=== PATIENT | male | born 1955 | race Hispanic/Latino ===

== ENCOUNTER 2021-04-09 08:16 | Day surgery (SDC) | payer OTHER ==
[~2021-04-09] VITALS: Ht 167.6 cm; Wt 76.2 kg
[2021-04-09] VITALS (7 sets, daily range): BP systolic 96–122; BP diastolic 59–76
[~2021-04-09 08:16] MED LIST: 0.9%NACL 1000ML 1,000 ML IV ONE
[2021-04-09] MEDS ORDERED: VITA1TAB22 PO (09:25)
[2021-04-09] MEDS ORDERED: METF-444 PO (09:25)
[2021-04-09] MEDS ORDERED: ROSU20TA31 PO (09:25)
[2021-04-09] MEDS ORDERED: CETI-89 PO (09:25)
[2021-04-09] MEDS ORDERED: CELE-84 PO (09:25)
[2021-04-09] MEDS ORDERED: ONDA-104 PO (09:25)
[2021-04-09] MEDS ORDERED: ESOM40CA54 PO (09:25)
[2021-04-09] MEDS ORDERED: PROPOFOL 10 MG/ML 20ML VIAL IV ONE ×3 (11:02→11:30)
[2021-04-09] MEDS ORDERED: LEVOFLOXACIN 500 MG/D5W 100 ML 100 ML ONE (11:30)
== END 2021-04-09 12:35 | disposition home or self-care (01) ==
LOC: ENDO 08:16 → DAH 08:16 → ENDO 12:35
PROVIDERS: ATTEND Internal Medicine Gastroenterology
DX: C25.0 Malignant neoplasm of head of pancreas (principal); K86.89 Other specified diseases of pancreas; K29.70 Gastritis, unspecified, without bleeding; K31.89 Other diseases of stomach and duodenum; K44.9 Diaphragmatic hernia without obstruction or gangrene; K59.00 Constipation, unspecified; Z90.49 Acquired absence of other specified parts of digestive tract; Z98.890 Other specified postprocedural states; Z86.010 Personal history of colon polyps; Z79.899 Other long term (current) drug therapy; Z79.84 Long term (current) use of oral hypoglycemic drugs; Z85.048 Personal history of other malignant neoplasm of rectum, rectosigmoid junction, and anus
CPT/HCPCS: 36415 ×2; 43238; 82150; 82378; 82948; 86316; 87635; 88173; 88305; 93005; A4215 ×2; A4221; A4222; A4223; A4606; A4620; A4657; A4663; C9803; J1956; J2704 ×3; J7030; 45385